=== PATIENT | female | born 1995 | race Caucasian/White ===

== ENCOUNTER 2018-02-11 10:47 | Emergency (ER) | payer OTHER ==
[~2018-02-11] VITALS: Ht 165.1 cm; Wt 72.5 kg
[2018-02-11] MEDS ORDERED: IBUP-2070 PO (10:51)
[2018-02-11] MEDS ORDERED: DSS100 PO (10:51)
[2018-02-11] MEDS ORDERED: LIDOCAINE/PF 1% 5 ML VIAL INJ ONE ×2 (12:30→13:45)
[2018-02-11] MEDS ORDERED: BACITRACIN 0.9 GM PACKET OINTMENT TP ONE (13:30)
[2018-02-11 14:29] VITALS: BP 129/75
== END 2018-02-11 14:35 | disposition home or self-care (01) ==
LOC: EMS 10:48
DX: S81.812A Laceration without foreign body, left lower leg, initial encounter (principal); R03.0 Elevated blood-pressure reading, without diagnosis of hypertension; W22.8XXA Striking against or struck by other objects, initial encounter; Y93.89 Activity, other specified; Y92.39 Other specified sports and athletic area as the place of occurrence of the external cause; Y99.8 Other external cause status
CPT/HCPCS: 12002; 73610; 99284; J3490

== ENCOUNTER 2018-02-28 13:31 | Emergency (ER) | payer OTHER ==
[~2018-02-28] VITALS: Ht 162.6 cm; Wt 73.6 kg
[~2018-02-28 13:31] MED LIST: DSS100 PO; IBUP-2070 PO
[2018-02-28 16:16] VITALS: BP 119/69
== END 2018-02-28 16:17 | disposition home or self-care (01) ==
LOC: EMS 13:32
DX: S81.812D Laceration without foreign body, left lower leg, subsequent encounter (principal); Z48.02 Encounter for removal of sutures; X58.XXXD Exposure to other specified factors, subsequent encounter
CPT/HCPCS: 99281